=== PATIENT | female | born 1950 | race Caucasian/White ===

== ENCOUNTER 2022-04-08 11:02 | Outpatient (REF) | payer MEDICARE, OTHER, SELFPAY ==
--- NOTE | ~2022-04-08 | MR_ITS ---
EXAMINATION: MR BRAIN WITHOUT CONTRAST CLINICAL INFORMATION: Tremor. Lacunar stroke. Rule out basal ganglia lesion. COMPARISON: Head CT 11/02/2012. TECHNIQUE: Multiplanar, multisequence imaging of the brain was performed without intravenous contrast. FINDINGS: There is no acute infarction, mass, hemorrhage, or extra-axial collection. The ventricles, sulci, and basilar cisterns are normal in size and configuration. There is a small chronic lacunar infarct within the right thalamus. Small chronic lacunar infarcts also seen within the right putamen. Patchy foci of T2/FLAIR hyperintensity are noted in the cerebral white matter, compatible chronic microangiopathy. The flow voids of the major intracranial arteries appear intact. The bones and extracranial soft tissues are unremarkable. MR/MR head/brain wo con IMPRESSION: No acute infarct, hemorrhage, or mass. Small chronic lacunar infarcts seen in the right putamen and right thalamus. Background changes of chronic microangiopathy.
== END 2022-04-08 11:03 | disposition home or self-care (01) ==
LOC: HO.MRI 11:02
PROVIDERS: PCP Internal Medicine; Visit Provider Psychiatry & Neurology Neurology
DX: R25.1 Tremor, unspecified (principal); I63.9 Cerebral infarction, unspecified
CPT/HCPCS: 70551

== ENCOUNTER → 2022-10-15 09:41 | Outpatient (BNVA) | payer MEDICARE, SELFPAY | PROVIDERS: PCP Internal Medicine; Visit Provider Surgery | DX: R91.1 Solitary pulmonary nodule (principal); Z87.891 Personal history of nicotine dependence | CPT/HCPCS: 99202 ==

== ENCOUNTER 2023-01-10 14:59 | Outpatient (REF) | payer MEDICARE, OTHER, SELFPAY ==
--- NOTE | ~2023-01-10 | CT_ITS ---
EXAMINATION: CT CHEST WITHOUT CONTRAST CLINICAL INFORMATION: Solitary pulmonary nodule. COMPARISON: OS chest CT 09/23/2022. TECHNIQUE: Multidetector volumetric CT imaging of the chest was done. Axial MIP volume rendering provided. Sagittal and coronal reformatted images were obtained. This CT examination was performed using dose optimization techniques as appropriate, variously including the following: *Automated exposure control *Adjustment of mA and/or kV according to patient size (this includes techniques or standardized protocols for targeted exams where dose is matched to indication/reason for exam; i.e. extremities or head) *Use of iterative reconstruction technique DLP: 110 mGy-cm FINDINGS: LUNGS: Groundglass nodule posterior right upper lobe measures 1.5 x 0.7 x 0.8 cm compared to 1.4 x 0.9 x 0.9 cm. No new pulmonary nodule. No consolidation. No evidence of interstitial disease. MEDIASTINUM: No adenopathy. Ascending aortic aneurysm measuring 4.2 cm. No pericardial effusion. CORONARY ARTERY CALCIFICATION: Present. Mild LAD calcium. PLEURA: There is no pleural effusion. No pleural mass or thickening. AXILLA: No lymphadenopathy. UPPER ABDOMEN: Simple cyst in the central liver. No follow-up imaging is recommended. OSSEOUS STRUCTURES: No suspicious osseous lesions CT/CT chest wo IV con IMPRESSION: Ascending aortic aneurysm measuring 4.2 cm. Stable 1.5 cm groundglass nodule right upper lobe. Recommend follow-up chest CT in 2 years as per below. 2017 Fleischner Society Recommendations for Lung Nodule(s): Follow-Up based on size (average of long- and short-axis diameters). Use most suspicious nodule for followup. Single GG lung nodule >= 6 mm: Recommend a non-contrast Chest CT at 6-12 months to confirm persistence, then additional non-contrast Chest CTs every 2 years until 5 years. These guidelines do not apply to patients younger than 35 years, immunocompromised patients, and patients with cancer. Follow up in patients with significant comorbidities as clinically warranted. For lung cancer screening, adhere to Lung-RADS guidelines. Reference: Radiology. 2017 José Luis; 284(1):228-243 Fleischner guidelines were followed.
== END 2023-01-10 15:00 | disposition home or self-care (01) ==
LOC: HO.CT 14:59
PROVIDERS: PCP Internal Medicine; Visit Provider Surgery
DX: R91.1 Solitary pulmonary nodule (principal)
CPT/HCPCS: 71250

== ENCOUNTER → 2023-01-28 09:20 | Outpatient (BNVA) | payer MEDICARE, SELFPAY | PROVIDERS: PCP Internal Medicine; Visit Provider Surgery | DX: R91.1 Solitary pulmonary nodule (principal) | CPT/HCPCS: 99212 ==

== ENCOUNTER 2023-07-04 10:19 | Outpatient (REF) | payer MEDICARE, OTHER, SELFPAY ==
--- NOTE | ~2023-07-04 | CT_ITS ---
EXAMINATION: CT CHEST WITHOUT CONTRAST CLINICAL INFORMATION: Solitary pulmonary nodule COMPARISON: 01/10/2023 and 09/23/2022 TECHNIQUE: Multidetector volumetric CT imaging of the chest was done. Axial MIP volume rendering provided. Sagittal and coronal reformatted images were obtained. This CT examination was performed using dose optimization techniques as appropriate, variously including the following: *Automated exposure control *Adjustment of mA and/or kV according to patient size (this includes techniques or standardized protocols for targeted exams where dose is matched to indication/reason for exam; i.e. extremities or head) *Use of iterative reconstruction technique DLP: 191 mGy-cm FINDINGS: PAPERHANGER AND PAINTER: Unremarkable LUNGS: There is stable right upper lobe ill-defined groundglass opacity measured 1.3 x 0.7 x 0.6 cm. The rest of lungs are clear without new nodules or consolidations. MEDIASTINUM: There is prominence of the right thyroid lobe without obvious nodularity. There is no mediastinal or hilar lymphadenopathy seen. Ascending thoracic aorta measured 4.2 x 4.2 cm consistent with ectasia. CORONARY ARTERY CALCIFICATION: Coronary artery calcifications present. PLEURA: There is no pleural effusion. No pleural mass or thickening. AXILLA: No lymphadenopathy. UPPER ABDOMEN: There are 23 low-attenuation lesions in the right lobe of the liver consistent with the appearance of cysts stable since previous study, with the largest in the right lobe measured 2.0 cm.. The cysts are stable. Gallbladder is unremarkable. Visualized pancreas is normal. Stomach is well distended. OSSEOUS STRUCTURES: Unremarkable. CT/CT chest wo IV con IMPRESSION: 1. Stable right upper lobe groundglass opacity. 2. Ectasia of ascending aorta. 3. Stable hepatic cysts. Fleischner guidelines were followed.
== END 2023-07-04 10:20 | disposition home or self-care (01) ==
LOC: HO.CT 10:19
PROVIDERS: PCP Internal Medicine; Visit Provider Surgery
DX: R91.1 Solitary pulmonary nodule (principal)
CPT/HCPCS: 71250

== ENCOUNTER 2024-08-22 12:49 | Outpatient (AMB) | payer MEDICARE, SELFPAY ==
[2024-08-22 12:59] VITALS: BP 120/78; PULSE 93; BMI 26.2
--- NOTE | 2024-08-22 12:59 | MHC.OFFVIS ---
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 Doll/Ascending aorta dilatation Manufacturing Laborer Required: Yes Manufacturing Laborer Name: [id number] Allergies No Known Allergies Allergy (Verified 01/28/23 09:42) Medication List - Last Reconciled 08/22/24 by Paras Lucas MD amlodipine 10 mg PO DAILY atorvastatin 20 mg PO QPM carbidopa-levodopa 25-100 mg 1 tab PO TID hydrochlorothiazide 25 mg PO DAILY levothyroxine (Euthyrox) 75 mcg PO DAILY HPI Comments Details: This is a cardiology consultation regarding ascending aortic dilatation. Patient herself does not have any cardiac history. No history of any coronary disease or myocardial infarction or cardiomyopathy or in fact any other cardiac issues. In the chest CT scan, there is concern for aortic dilatation and hence she has been referred here. In terms of symptoms, she states she feels fine. She does not have any angina or any relevant cardiac symptoms. Has history of hypertension/dyslipidemia on medications. [facility] Medical History (Updated 08/22/24 @ 13:44 by Paras Lucas MD) Ascending aorta dilatation Former smoker, stopped smoking in distant past Hypothyroidism Hypertension History of TIA (transient ischemic attack) Surgical History History of hemorrhoidectomy Family History (Updated 08/22/24 @ 13:10 by Kiara Patricia) Father No problems noted. Mother No problems noted. Social History Patient Tobacco Use Status: Former Tobacco user Cigarette Packs Per Day: 1 Cigarettes Per Day: 20 Years Smoked: Smoked for 29 years onset age 18 at 1 pack per day. Quit 25 years ago. Review of Systems Const Denies weakness ENT Denies dizziness Card Reports chest pain, Denies chest pain with activity, Denies syncope, Denies rapid heart rate, Denies pedal edema, Denies edema, Denies leg edema, Denies lightheadedness, Reports palpitations, Denies dyspnea, Denies dyspnea on exertion and Denies orthopnea Resp Denies cough, Denies dyspnea and Denies dyspnea on exertion GI Denies hematochezia and Denies change in stool character Musc Denies abnormal gait, Denies muscle cramps, Denies muscle weakness, Denies numbness, Denies radiating pain into limb and Denies tingling Neuro Denies abnormal gait, Denies dizziness, Denies syncope, Denies numbness, Denies tingling and Denies weakness Endo Reports palpitations Physical Exam Vital Signs: Last Vital Signs Pulse 93 08/22/24 12:59 BP 120/78 08/22/24 12:59 BMI result Body Mass Index 26.2 Const General: comfortable and no acute distress Orientation/consciousness: patient oriented x3 HEENT Other: Unremarkable Head: Yes normal to inspection Neck Neck: Yes normal visual inspection Chest Chest palpation & inspection: normal inspection of the chest Resp Auscultation: clear to auscultation bilaterally Cardio Palpation: normal PMI Heart sounds: S1 normal heart sound present, S2 normal heart sound present, no gallops, no murmurs and no rubs GI Palpation (GI): Soft to palpation Back/Spine/Pelvis Other: unremarkable Skin General skin exam: no rashes or lesions noted Neuro General: patient oriented x3 Extrem General: Yes normal to inspection Psych Mental Status: mental status grossly normal Assessment & Plan Assessment & Plan (1) Ascending aorta dilatation: Code(s): I77.810 - Thoracic aortic ectasia Category: Medical Plan: In the chest CT scan from 2022, ascending aortic size 4.2 cm. A repeat study from the same year is similar. In the echocardiogram from 2022 at [facility], ascending aortic size reported to be 4.4 cm. As it has been more than a year, we will repeat an echocardiogram for evaluation of size. Any case at the current size of 4.2-4.4 cm, no specific management. Her blood pressure already seems to be very well controlled. Follow-up after the echocardiogram. (2) Hypertension: Code(s): I10 - Essential (primary) hypertension Category: Medical Plan: Stable on amlodipine/hydrochlorothiazide. (3) Hyperlipidemia: Code(s): E78.5 - Hyperlipidemia, unspecified Category: Medical Plan: On statins. LDL 48 mg/dL. Orders: Orders CA echo transthoracic complete Today I77.810 - Thoracic aortic ectasia Coding Level of Care Code New Pt Level 4 (88879) Diagnoses Ascending aorta dilatation I77.810 Hypertension I10 Hyperlipidemia E78.5
--- OUTSIDE RECORDS SUMMARY | 2024-08-22 14:38 | XMS_ITS | Encounter Summary ---
Author Organization [employer] Address [address] [place] [address] [address] [place] [address] Care Team Providers Care Linen Grader Name Role Phone Unavailable Primary Care Provider Unavailabl e Encounter Details Date Type Department Care Team (Latest Contact Info) Description 10/31/2020 Abstract C CONVERSIONS Dental, Provider, DDS Social History Tobacco Use Types Packs/Day Years Used Date Smoking Tobacco: Never Assessed Comments Unknown Sex and Gender Information Value Date Recorded Sex Assigned at Female 05/31/2022 10:16 AM EDT Legal Sex Female 10:16 AM EDT Gender Identity Choose not to disclose 10:16 AM EDT Sexual Orientation Choose not to disclose 2021 10:16 AM EDT documented as of this encounter Plan of Treatment Not on file documented as of this encounter Visit Diagnoses Not on filedocumented in this encounter
--- OUTSIDE RECORDS SUMMARY | 2024-08-22 14:38 | XMS_ITS | Clinical Summary ---
Author Organization [employer] Address [address] [place] [address] [address] [place] [address] Care Team Providers Care Executive Creative Director Name Role Phone Unavailable Primary Care Provider Unavailabl e Social History Tobacco Use Types Packs/Day Years Used Date Smoking Tobacco: Never Assessed Comments Unknown Sex and Gender Information Value Date Recorded Sex Assigned at Female 05/31/2022 10:16 AM EDT Legal Sex Female 10:16 AM EDT Gender Identity Choose not to disclose 10:16 AM EDT Sexual Orientation Choose not to disclose 2021 10:16 AM EDT Plan of Treatment Health Maintenance Due Date Last Done Comments CT Colonography 1952 Colonoscopy 1952 Colorectal Cancer Screening 1952 Depression Screening 1952 FIT DNA/Cologuard 1952 FIT 1952 FOBT 1952 Sigmoidoscopy 1952 Alcohol/Substance Use Screening 1964 Tobacco Screening 1964 DTaP/Tdap/Td Vaccines (1 - Tdap) 1971 Mammogram 1992 Zoster Vaccines (1 of 2) 2002 Pneumococcal Vaccine: 65+ Ye ars (1 of 1 - PCV) 2017 COVID-19 Vaccine ( - 2023-2 5 season) 2024 Influenza Vaccine (#1) 2024 RSV Patients and Pa tients Aged 60 years or older (1 - 1-dose 75+ series) 2027 HIB Vaccines Aged Out No longer eligi ble based on patient's age to complete this topic HPV Vaccines Aged Out No longer eligi ble based on patient's age to complete this topic Hepatitis A Vaccines Aged Out No long er eligible based on patient's age to complete this topic Hepatitis B Vaccines Aged Out No long er eligible based on patient's age to complete this topic IPV Vaccines Aged Out No longer eligi ble based on patient's age to complete this topic Meningococcal Vaccine Aged Out No carlos ayana eligible based on patient's age to complete this topic RSV under 20 months Aged Out No longe r eligible based on patient's age to complete this topic Rotavirus Vaccines Aged Out No longer eligible based on patient's age to complete this topic
--- OUTSIDE RECORDS SUMMARY | 2024-08-22 14:38 | XMS_ITS | Clinical Summary ---
Author Organization [facility] Address [address] [place] [address] Care Team Providers Care Snow Removal Supervisor Name Role Phone Unavailable Primary Care Provider Unavailabl e Source Comments PLEASE NOTE, if this patient is a minor, it may be UNLAWFUL to discuss sensitive information that is contained in these records (such as FAMILY PLANNING, MENTAL HEALTH or SUBSTANCE ABUSE) with the minor patient's parent or other person without the patient's specific authorization.[facility] Immunizations Name Administration Dates Next Due Moderna COVID-19 Vaccine, re d cap blue label, 12+ Primary Series 11/24/2020,10/27/2020 Social History Tobacco Use Types Packs/Day Years Used Date Smoking Tobacco: Never Assessed Social Connections Answer Date Recorded Social Connections and Isolation 0 10/27/2020 Financial Resource Strain Answer Date R ecorded Financial Resource Strain 0 2020 Stress Answer Date Recorded Stress 0 10/27/2020 Physical Activity Answer Date Recorded Physical Activity 0 10/27/2020 Food Insecurity Answer Date Recorded Food 0 10/27/2020 Transportation Needs Answer Date Record ed Transportation 0 10/27/2020 Housing Stability Answer Date Recorded Housing 0 10/27/2020 Safety and Environment Answer Date Shan rded Safety 0 10/27/2020 Utilities Answer Date Recorded Utilities 0 10/27/2020 Employment Answer Date Recorded Employment 0 10/27/2020 Comments Unknown Sex and Gender Information Value Date Recorded Sex Assigned at Not on file Legal Sex Female 5:32 AM PDT Gender Identity Not on file Sexual Orientation Not on file Plan of Treatment Health Maintenance Due Date Last Done Comments Hepatitis C Screening 1952 Tobacco Screening 1952 Hypertension Screening (#1) 1970 Medicare Annual Wellness Visit 1970 Breast Cancer Screening (Mammogram) 1992 CT Colonography 1997 Colonoscopy 1997 Colorectal Cancer Screening 1997 FIT/gFOBT 1997 Fecal DNA 1997 Flexible Sigmoidoscopy 1997 Imm-Zoster, Recombinant (1 of 2) 2002 Bone Density Screening 2017 Falls Prevention 2017 Imm-Pneumococcal 65+ (2 of 2 - PPSV23 or PCV20) 03/29/2019 03/29/2018 Imm-DTaP/Tdap/Td (2 - Td or Tdap) 06/09/2022 012 [id number] (3 - season) 2024 021, 10/27/2020 Imm-Influenza (#1) 2024 05/23/2020, 07/18/2019 Alcohol and Drug Screen 08/01/2024 Depression Annual Screen 08/01/2024 Lipid Screening 09/25/2025 09/25/2020 Insurance [employer] MEDICARE COMPLETE CHO
--- OUTSIDE RECORDS SUMMARY | 2024-08-22 14:38 | XMS_ITS | Clinical Summary ---
Author Organization Patient Business Ser [facility] Address [address] [place] [address] Care Team Providers Care Guidance And Control System Engineer Name Role Phone Tere Tim MD Primary Care Prov ider Allergies No known active allergies Medications Medication Sig Dispensed Refills Start Date End Date Status levothyroxine (SYNTHROID, LEVOTHROID) 75 mcg tablet Take 1 tablet (75 mcg total) by mouth 1 (one) time each day. 02/23/2024 Active hydroCHLOROthiazide (MICROZIDE) 12.5 mg capsule Take 1 capsule (12.5 mg total) by mouth 1 (one) time each day. 05/28/2024 Active carbidopa-levodopa (SINEMET) 25-100 mg per tablet Take 1 tablet by mouth. 09/19/2022 Active atorvastatin (LIPITOR) 20 mg tablet Take 1 tablet (20 mg total) by mouth 1 (one) time each day. 02/23/2024 Active amLODIPine (NORVASC) 5 mg tablet Take 1 tablet (5 mg total) by mouth 1 (one) time each day. 02/23/2024 Active multivitamin with minerals (CENTRUM/CERTAVIT) 18-400 mg-mcg tablet tablet Take by mouth 1 (one) time each day. Active calcium carbonate (CALCIUM ORAL) Take by mouth. Active Active Problems Problem Noted Date Diagnosed Date Rectocele 09/01/2023 Overview (06/16/2024): Last Assessment & Plan: Reviewed options for management of pelvic organ prolapse including observation, as long as not having difficulty emptying or significant discomfort, pessary fitting, vs surgical intervention. Given she is minimally symptomatic and has no difficulty emptying bladder, she desires to observe for now, but will call if she desires pessary fitting in the future. I did recommend she work on her constipation to avoid worsening. Ground glass opacity present on imaging of lung 07/15/2023 Overview (06/16/2024): Last Assessment & Plan: 73-year-old woman who I had followed for a little while at [facility] with a stable purely groundglass nodule measuring 1.3 x 0.7 x 0.6 cm in the right upper lobe along the fissure. Based on its size and appearance is quite possibly could be a lipidic type lung cancer or precancerous lesion. I did discuss with her and her daughter again how we use the size, shape/appearance, and growth over time to either raise or lower suspicion for a lung cancer. This is stable and still purely groundglass but I discussed options with her of continued observation versus needle biopsy versus surgical wedge resection. The risks and benefits reviewed these options were discussed and she decided to go with observation. With that in mind we will now plan on doing a follow-up CT scan of the chest in 1 year and a visit with me in this office after that. All questions were answered. She will have her CAT scans moving forward here at [facility]. Osteoporosis 10/18/2022 Overview (06/16/2024): DXA BONE DENSITY STUDY 1+ SITS AXIAL SKEL Result Date: 10/18/2022 BONE DENSITY (DEXA) Lumbar Spine T-score is -2.3. (SD relative to 20-29 y/o adult) Z-score is -0.2. (SD relative to age matched peers) This is considered osteopenia by WHO criteria. Left Hip T-score is -3.3. Z-score is -1.5. This is considered osteoporosis by WHO criteria. Lateral view of the spine demonstrates vertebral heights to be maintained. IMPRESSION This patient is considered to have osteoporosis by WHO criteria. The [facility] Department of Internal Medicine recommends using National Osteoporosis Foundation (NOF) guidelines in treatment decisions related to osteoporosis. NOF guidelines suggest considering treatment for postmenopausal women and men aged 50 or older presenting with the following: History of hip or vertebral fracture. T-score = -2.5 (DXA) at the femoral neck, total hip, or spine, after appropriate evaluation to exclude secondary causes. Low bone mass (T-score between -1.0 and -2.5 at the femoral neck or spine) AND a 10-year probability of a hip fracture = 3% OR a 10-year probability of a major osteoporosis-related fracture = 20% based on the [place]-adapted WHO algorithm Please note that all treatment decisions require clinical judgment and consideration of individual patient factors, including patient preferences, co-morbidities, previous drug use, risk factors not captured in the FRAX model (e.g., frailty, falls, vitamin D deficiency, increased bone turnover, interval significant decline in bone density) and possible under- or over- estimation of fracture risk by FRAX. Optional alternative screening schedule based on laurie Weems., [facility] August 19, 2011 for patients with osteopenia (based on hip BMD T- score) is as follows: * advanced osteopenia (T scores -2.00 to -2.49), BMD testing every year * moderate osteopenia (T scores -1.50 to -1.99), BMD testing every 5 years mild osteopenia or normal BMD (T scores -1.50 and higher), BMD testing every 15 years Parkinson's disease 06/07/2022 Overview (06/16/2024): Dr Lawson Hyperlipidemia 07/01/2021 Overview (06/16/2024): Last Assessment & Plan: Patient did have a lipid profile performed 3 weeks ago. The total cholesterol was 254 Triglycerides 196 the HDL was 56 and the LDL was 159. She was noted to have some mild coronary artery calcifications on the CT scan. I would consider starting her on a statin such as rosuvastatin to try to get the LDL down to 70 or below. Ascending aorta dilatation 04/02/2015 Overview (06/16/2024): CT 02/28/15: measuring 4.3 cm AP Last Assessment & Plan: I did review with her that the last echocardiogram demonstrated that her heart function was normal. Ascending aorta was dilated at 4.4 cm.The transverse aorta was dilated at 3.4 cm. The etiology is not clear. There is no family history of dilated aorta. There has been no history of collagen vascular disease. I did again tell her her children should get a screening echocardiogram. She did have a CT of the chest back in September and she is seeing a thoracic surgeon because of the finding there. The ascending aorta at that time was noted to be 4.2 cm. I does have a repeat echocardiogram scheduled for December. Today the blood pressure is good. She was recently started on carbidopa-levadopa for her Parkinson's. Therefore somewhat reluctant to start a beta-yessy at this time. I did tell her if she started having exertional symptoms, that I described to her to call. I did tell her if she had any chest discomforts or upper back discomfort that lasted over 15 minutes to call 911. Depression, major, recurrent 01/16/2014 Weakness 07/06/2012 Lacunar infarction 07/03/2012 Overview (06/16/2024): Right basal ganglia- old seen on CT at [facility] 06/2012 Asthma 02/11/2012 HTN (hypertension), benign 09/08/2011 Overview (06/16/2024): Carotid cuplex b/l: less than 50% ica stenosis Hypothyroid 09/08/2011 Immunizations Name Administration Dates Next Due Influenza trivalent, 0.5mL (Fluad) 65yo and olde r 05/23/2020,07/18/2019 Pneumococcal conjugate 13 va lent (Prevnar 13, PCV13) 2mo and older 03/29/2018 Td Tetanus diptheria (Tdvax) 7yo and older 10/04 Tdap Tetanus diptheria acell ular pertussis (Boostrix; Adacel) 7yo and older 06/09/2012 Surgical History Surgery Date Site/Laterality Comments TUBAL LIGATION PROCEDURE: HISTORICAL TUBAL LIGATION HEMORRHOID SURGERY PROCEDURE: DESTRUCTION OF HEMORRHOIDS SECTION PROCEDURE: HISTORICAL DELIVERY BREAST BIOPSY PROCEDURE: BX BREAST; PERC NEEDLE CORE W/IMAG GUID; COMMENT: lt brst cyst asp Medical History Medical History Date Comments Disorder of thyroid DX:Disorder of thyroid Essential hypertension DX:Essent ial hypertension TIA (transient ischemic attack) DX:TIA (transient ischemic attack) Parkinson's disease (CMS/HCC) 06/07/2022 DX :Parkinson's disease (HCC); COMMENT: Dr Lawson Family History Medical History Relation Name Comments No Known Problems Aunt No Known Problems Brother No Known Problems Father No Known Problems Maternal Grandfather No Known Problems Maternal Grandmother No Known Problems Mother No Known Problems Other No Known Problems Paternal Grandfather No Known Problems Paternal Grandmother No Known Problems Sister No Known Problems Uncle Blindness Neg Hx Breast cancer Neg Hx Cataracts Neg Hx Colon cancer Neg Hx Glaucoma Neg Hx Macular degeneration Neg Hx Ovarian cancer Neg Hx Strabismus Neg Hx Stroke Neg Hx Relation Name Status Comments Aunt Brother Father Maternal Grandfather Maternal Grandmother Mother Other Paternal Grandfather Paternal Grandmother Sister Uncle Social History Tobacco Use Types Packs/Day Years Used Date Smoking Tobacco: Former Smokeless Tobacco: Former Alcohol Use Standard Drinks/Week Comments Yes 0 (1 standard drink = 0.6 oz pur e alcohol) Sex and Gender Information Value Date Recorded Sex Assigned at Not on file Gender Identity Not on file Sexual Orientation Not on file Obstetrics History Last Filed Vital Signs Vital Sign Reading Time Taken Comments Blood Pressure 120/70 02/23/2024 10:47 AM EDT Pulse 73 02/23/2024 10:47 AM EDT Temperature - - Respiratory Rate - - Oxygen Saturation - - Inhaled Oxygen Concentration - - Weight 66.3 kg (146 lb 3.2 oz) 02/23/2024 10:47 AM EDT Height 154.9 cm (5' 1 ) 02/23/2024 10:47 AM EDT Body Mass Index 27.62 02/23/2024 10:47 AM EDT Plan of Treatment Upcoming Encounters Date Type Department Care Team (Late st Contact Info) Description 08/27/2024 8:45 AM EST Office Visit Adult Medicine [address] [address] Tere Tim MD [address] [place] [id number] 08/31/2024 5:15 PM EST Appointment [facility] Scan [address] [place] [id number] 09/06/2024 10:30 AM EST Office Visit Thoracic Surgery - [place] [address] [facility] [address] [place] [address] Renny Dietrich MD [address] [place] [phone] 09/17/2024 9:50 AM EST Appointment Radiology Department - [address] [phone] Health Maintenance Due Date Last Done Comments Zoster Vaccines (1 of 2) 2002 RSV Immunization Patients 60+ Years Old (1 - Risk 60-74 years 1-dose series) 2012 Medicare Annual Wellness Visit 02/02/2020 Social Influencers of Health Screening 02/02/2020 COVID-19 Vaccine ( season) 2024 11/24/2020, 10/27/2020 Influenza Vaccine (#1) 2024 05/23/2020, 2018 Colorectal Cancer Screening: Colonoscopy 02/22/2025 09/08/2010 Postponed from 09/08/2020 (Patient Refused) Depression Screening 02/22/2025 02/23/2024 Falls Risk Assessment 02/22/2025 02/23/2024 Pneumococcal Vaccine: 65+ Years (2 of 2 - PPSV23 or PCV20) 02/22/2025 03/29/2018 Postponed from 05/24/2018 (Patient Refused) Hypertension/CHF/CAD Annual BMP Blood Test 02/26/2025 02/27/2024 Breast Cancer Screening 09/06/2025 09/06/19, 07/22/2022, 07/15/2021, Additional history exists Cholesterol Screening (Lipid Panel) 02/26/2029 02/27/2024 DTaP,Tdap,and Td Vaccines (3 - Td or Tdap) 10/04/2032 10/04/2022, 06/09/2012 Osteoporosis Screening (Bone Density Screening) 10/18/2032 10/18/2022, 06/25/2019 Hepatitis C Screening Addressed 11/08/2017 Overri dden with the intention of not completing the topic HIB Vaccines Aged Out No longer eligi [...] on patient's age to complete this topic MMR Vaccines Aged Out No longer eligi ble based on patient's age to complete this topic Meningococcal ACWY Vaccine Aged Out N o longer eligible based on patient's age to complete this topic RSV Immunization Patients Under 20 months Aged Out No longer eligible based on patient's age to complete this topic Varicella Vaccines Aged Out No longer eligible based on patient's age to complete this topic Procedures Procedure Name Priority Date/Time Associated Diagnosis Comments SCREENING MAMMOGRAPHY BI 2-VIEW BREAST INC CAD Routine 09/06/2023 6:26 PM EST Encounter for screening mammogram for malignant neoplasm of breast DXA BONE DENSITY STUDY 1+ SITS AXIAL SKEL Routine 10/18/2022 10:12 AM EDT Asymptomatic menopausal state from Last 3 Months or Most Recently Relevant to Health Maintenance Results * SCREENING MAMMOGRAPHY BI 2-VIEW BREAST INC CAD (09/06/2023 6:26 PM EST) Anatomical Region Laterality Modality Radiographic Cheri ging 07/22/2022 9:13 AM EST Narrative 09/07/2023 11:56 AM EST This is a summary report. The complete report is available in the patient's medical record. If you cannot access the medical record, please contact the sending organization for a detailed fax or copy. Full field digital screening tomosynthesis mammography, reviewed with CAD and compared to previous mammograms dating back to 06/25/2019 with most recent of 07/22/2022. The breasts are composed of fatty and fibroglandular tissue. ??No suspicious mass, architectural distortion or suspicious calcifications are identified. IMPRESSION: : No mammographic evidence of malignancy. BIRADS 1-Negative; N. 5 year breast cancer risk assessment 1.7 % Lifetime breast cancer risk assessment 4.7 % Breast cancer risk category Low (<15%) Procedure Note Aga Bourne MD - 03/19/2024 This is a summary report. The complete report is available in thepatient's medical record. If you cannot access the medical record, pleasecontact the sending organization for a detailed fax or copy. Full field digital screening tomosynthesis mammography, reviewed with CADand compared to previous mammograms dating back to 06/25/2019 with mostrecent of 07/22/2022. The breasts are composed of fatty and fibroglandulartissue. No suspicious mass, architectural distortion or suspiciouscalcifications are identified. IMPRESSION: : No mammographic evidence of malignancy. BIRADS 1-Negative; N. 5 year breast cancer risk assessment 1.7 % Lifetime breast cancer risk assessment 4.7 % Breast cancer risk category Low (<15%) Tere Tim MD IMG XR PRO CEDURES * DXA BONE DENSITY STUDY 1+ SITS AXIAL SKEL (10/18/2022 10:12 AM EDT) Anatomical Region Laterality Modality Bone Densitometr y 10/04/2022 9:31 AM EST Narrative 10/18/2022 1:06 PM EDT BONE DENSITY (DEXA) ? Lumbar Spine T-score is -2.3. ?? (SD relative to 20-29 y/o adult) Z-score is -0.2. ??(SD relative to age matched peers) This is considered osteopenia by WHO criteria. Left Hip T-score is -3.3. Z-score is -1.5. This is considered osteoporosis by WHO criteria. Lateral view of the spine demonstrates vertebral heights to be maintained. IMPRESSION: This patient is considered to have osteoporosis by WHO criteria. The [facility] Department of Internal Medicine recommends using National Osteoporosis Foundation (NOF) guidelines in treatment decisions related to osteoporosis. NOF guidelines suggest considering treatment for postmenopausal women and men aged 50 or older presenting with the following: History of hip or vertebral fracture. T-score = -2.5 (DXA) at the femoral neck, total hip, or spine, after appropriate evaluation to exclude secondary causes. Low bone mass (T-score between -1.0 and -2.5 at the femoral neck or spine) AND a 10-year probability of a hip fracture = 3% OR a 10-year probability of a major osteoporosis-related fracture = 20% based on the [place]-adapted WHO algorithm Please note that all treatment decisions require clinical judgment and consideration of individual patient factors, including patient preferences, co-morbidities, previous drug use, risk factors not captured in the FRAX model (e.g., frailty, falls, vitamin D deficiency, increased bone turnover, interval significant decline in bone density) and possible under- or over-estimation of fracture risk by FRAX. Optional alternative screening schedule based on christopher Weems al., [facility] August 19, 2011 for patients with osteopenia (based on hip BMD T-score) is as follows: * ??advanced osteopenia (T scores -2.00 to -2.49), BMD testing every year * ??moderate osteopenia (T scores -1.50 to -1.99), BMD testing every 5 years mild osteopenia or normal BMD (T scores -1.50 and higher), BMD testing every 15 years Procedure Note Aga Bourne MD - 09/05/2023 BONE DENSITY (DEXA) Lumbar Spine T-score is -2.3. (SD relative to 20-29 y/o adult) Z-score is -0.2. (SD relative to age matched peers) This is considered osteopenia by WHO criteria. Left Hip T-score is -3.3. Z-score is -1.5. This is considered osteoporosis by WHO criteria. Lateral view of the spine demonstrates vertebral heights to be maintained. IMPRESSION: This patient is considered to have osteoporosis by WHO criteria. The [facility] Department of Internal Medicine recommendsusing National Osteoporosis Foundation (NOF) guidelines in treatment decisions related toosteoporosis. NOF guidelines suggest considering treatment for postmenopausal women and menaged 50 or older presenting with the following: History of hip or vertebral fracture. T-score = -2.5 (DXA) at the femoral neck, total hip, or spine, afterappropriate evaluation to exclude secondary causes. Low bone mass (T-score between -1.0 and -2.5 at the femoral neck or spine)AND a 10-year probability of a hip fracture = 3% OR a 10-year probability of a majorosteoporosis-related fracture = 20% based on the [place]-adapted WHO algorithm Please note that all treatment decisions require clinical judgment andconsideration of individual patient factors, including patient preferences, co- morbidities,previous drug use, risk factors not captured in the FRAX model (e.g., frailty, falls, vitaminD deficiency, increased bone turnover, interval significant decline in bone density) andpossible under- or over-estimation of fracture risk by FRAX. Optional alternative screening schedule based on laurie Weems., NEJMJanuary 2011 for patients with osteopenia (based on hip BMD T-score) is as follows: * advanced osteopenia (T scores -2.00 to -2.49), BMD testing every year * moderate osteopenia (T scores -1.50 to -1.99), BMD testing every 5years mild osteopenia or normal BMD (T scores -1.50 and higher), BMD testingevery 15 years Laura CORBIN DXA PROCEDURES from Last 3 Months or Most Recently Relevant to Health Maintenance Care Teams Guidance And Control System Engineer Relationship Specialty Start Date End Date Tere Tim MD PCP - General Internal Medicine 03/02/22
== END 2024-08-22 13:21 | disposition home or self-care (01) ==
PROVIDERS: PCP Internal Medicine; Visit Provider Internal Medicine
DX: I77.810 Thoracic aortic ectasia (principal); I10 Essential (primary) hypertension; E78.5 Hyperlipidemia, unspecified
CPT/HCPCS: 93010; 99204

== ENCOUNTER → 2024-08-22 12:49 | Outpatient (BNVA) | payer MEDICARE, OTHER, SELFPAY | PROVIDERS: PCP Internal Medicine; Visit Provider Internal Medicine | DX: I77.810 Thoracic aortic ectasia (principal); I10 Essential (primary) hypertension; E78.5 Hyperlipidemia, unspecified | CPT/HCPCS: 93005; 99202 ==

== ENCOUNTER → 2024-08-31 09:45 | Outpatient (REF) | payer MEDICARE, OTHER, SELFPAY ==
--- NOTE | 2024-08-31 09:47 | CA_ITS ---
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 The calculated ejection fraction is 67% by biplane method. - No obvious valvular pathology seen on this study. - There is mild dilatation of the ascending aorta measuring 4.10 cm. Findings Left Ventricle Normal left ventricular cavity size. There is normal left ventricular wall thickness. The left ventricular systolic function is normal. The calculated ejection fraction is 67% by biplane method. There is no evidence of regional wall motion abnormalities. Diastolic function is normal for age. Right Ventricle Normal right ventricular cavity size and systolic function. Atria Both atria are normal in size. Aortic Valve The aortic valve was not well visualized. There is no aortic valve stenosis. There is no aortic valve regurgitation. Mitral Valve The mitral valve appears normal. There is no mitral valve regurgitation. There is no mitral valve stenosis. Pulmonic Valve The pulmonic valve is likely normal. Tricuspid Valve There is trace tricuspid valve regurgitation. There is no evidence of pulmonary hypertension. Great Vessels There is mild dilatation of the ascending aorta measuring 4.10 cm. Venous The inferior vena cava is normal in size and collapses greater than 50% with inspiration. Pericardium/Pleural There is no evidence of pericardial effusion. Prior Study Comparison Changes noted compared to prior study dated: 06/27/2012. Recommendations, Care & Conclusions No obvious valvular pathology seen on this study. Measurements 2D Linear Measurements IVSd: 0.99 0.6-0.9/0.6-1.0 cm LVIDd: 4.58 3.9-5.3/4.2-5.9 cm LVIDd Index: 2.78 2.4-3.2/2.2-3.1 cm/m2 LVIDs: 3.06 2.0-3.6 cm LVPWd: 0.60 0.7-1.1 cm Ao Root: 3.20 2.1-3.5 cm LA Diam: 3.90 2.7-3.8/3.0-4.0 cm LAIDs Index: 2.36 1.5-2.3 cm/m2 LV Mass: 144.25 67-162/88-224 g LV Mass Index: 87.42 43-95/49-115 g/m2 LVOT Diam: 2.10 3.0+(-)1.3 cm 2D Systolic Function EF 4C: 61.70 >55% EF 2C: 72.20 >55% EF BiP: 67.10 >55% Mitral Valve MV Pk E: 0.50 MV PK A: 0.92 MV Decel Time: 155.00 E/A: 0.50 E'Lateral: 6.31 E'Medial: 5.55 E/E' Med: 9.00 E/E' Lat: 8.00 PHT: 46.00 MVA PHT: 4.78 Decel Bucks: 3.23 Aortic Valve AoV Pk Todd: 1.45 AoV Pk Grad: 8.00 LVOT LVOT Pk Todd: 1.33 LVOT Mn Todd: 0.80 LVOT VTI: 0.32 LVOT Pk Grad: 7.00 LVOT Mn Grad: 3.00 LVOT Diam: 2.10 LVOT Area: 3.46 Diastolic Function MV Pk E: 0.50 MV Pk A: 0.92 E/A: 0.50 E'Medial: 5.55 E/E' Med: 9.00 E' Laterial: 6.31 E/E' Lat: 8.00 Right Ventricle TAPSE (mm): 18.00 TVS' Todd: 10.00 Tricuspid Valve TR Pk Todd: 1.56 TR Pk Grad: 10.00 RA Press: 3.00 RVSP: 13.00 Great Vessels Aorta Ao Root-2D: 3.20 2.0-3.7 cm Ao Asc: 4.10 2.1-3.4 cm Pulmonary Valve PV Pk Todd: 0.89 Peak PV Grad: 3.00 Updated in Other Vendor System with Status of Final Paras Lucas MD electronically signed on 09/01/2024 1:03:04 PM with status of Final
--- OUTSIDE RECORDS SUMMARY | 2024-08-31 10:20 | XMS_ITS | Clinical Summary ---
Author Organization [employer] Address [address] [place] [address] [address] [place] [address] Care Team Providers Care Presentation Designer Name Role Phone Unavailable Primary Care Provider [...] Vaccines (1 - Tdap) 1971 Mammogram 1992 Pneumococcal Vaccine: 50+ Ye ars (1 of 1 - PCV) 2002 Zoster Vaccines (1 of 2) 2002 COVID-19 Vaccine ( - 2023-2 5 season) [...]
--- OUTSIDE RECORDS SUMMARY | 2024-08-31 10:20 | XMS_ITS | Clinical Summary ---
Author Organization [facility] Address [address] [place] [address] Care Team Providers Care Fire Crew Worker Name Role Phone Unavailable Primary Care Provider [...] 2017 Imm-Pneumococcal 65+ (2 of 2 - PPSV23) 03/29/2019 Imm-DTaP/Tdap/Td (2 - Td or Tdap) 06/09/2022 012 [id number] (3 - season) 2024 021, 10/27/2020 Imm-Influenza (#1) 2024 05/23/2020, 07/18/2019 Alcohol and Drug Screen 08/01/2024 Depression Annual Screen 08/01/2024 Lipid Screening 09/25/2025 09/25/2020 Insurance [employer] MEDICARE COMPLETE CHO
--- OUTSIDE RECORDS SUMMARY | 2024-08-31 10:20 | XMS_ITS | Encounter Summary ---
Author Organization [employer] Address [address] [place] [address] Care Team Providers Care Button Attaching Machine Operator Name Role Phone Tere Tim MD Primary Care Prov ider Reason for Referral * Consultation (Routine) - Pending Review Specialty Diagnoses / Procedures Referred By Contac t Referred To Contact Physical Therapy Diagnoses Left shoulder pain, unspecified chronicity Tere Tim MD [address] [place] [id number] Referral ID Status Reason Start Date Expiration Date Visits Requested Visits Authorized [id number] Pending Review Specialty Services Required 08/27/2024 08/27/2025 1 1 Reason for Visit * Reason Comments Follow-up 6 month follow up Encounter Details Date Type Department Care Team (Late st Contact Info) Description 08/27/2024 8:45 AM EST Office Visit Adult Medicine [address] [phone] Tere Tim MD [address] [place] [id number] HTN (hypertension), benign (Primary Dx); Mixed hyperlipidemia; Hypothyroidism, unspecified type; Parkinson's disease without dyskinesia, unspecified whether manifestations fluctuate (CMS/HCC); Ascending aorta dilatation (CMS/HCC); Left shoulder pain, unspecified chronicity Social History Tobacco Use Types Packs/Day Years Used Date Smoking Tobacco: Former Smokeless Tobacco: Former Alcohol Use Standard Drinks/Week Comments Yes 0 (1 standard drink = 0.6 oz pur e alcohol) Sex and Gender Information Value Date Recorded Sex Assigned at Not on file Gender Identity Not on file Sexual Orientation Not on file Job Start Date Occupation Industry Not on file Not on file Not on file documented as of this encounter Last Filed Vital Signs Vital Sign Reading Time Taken Comments Blood Pressure 126/85 08/27/2024 8:33 AM EST Pulse 80 08/27/2024 8:33 AM EST Temperature 36.1 ??C (97 ??F) 08/27/2024 8:33 AM EST Respiratory Rate 16 08/27/2024 8:33 AM EST Oxygen Saturation - - Inhaled Oxygen Concentration - - Weight 66.2 kg (146 lb) 08/27/2024 8:33 AM EST Height 154.9 cm (5' 1 ) 08/27/2024 8:33 AM EST Body Mass Index 27.59 08/27/2024 8:33 AM EST documented in this encounter Progress Notes * Tere Tim MD - 08/27/2024 8:45 AM ESTAssociated Problem(s): HTN (hypertension), benign Today 126/85. Currently on amlodipine 5 mg a day, hydrochlorothiazide 25 mg. Patient is encouraged to follow a low-salt diet and exercise as much as he can. Continue same regimen, will check a CMP before her next visit. Orders: Comprehensive metabolic panel; Future Lipid panel with reflex to direct LDL; Future Thyroid stimulating hormone with reflex to free t4 and free t3; Future * Tere Tim MD - 08/27/2024 8:45 AM ESTAssociated Problem(s): Hyperlipidemia Currently on atorvastatin 20 mg a day. She is encouraged to follow a low-fat diet and exercise as above. Will check a lipid profile before her next visit. Orders: Comprehensive metabolic panel; Future Lipid panel with reflex to direct LDL; Future Thyroid stimulating hormone with reflex to free t4 and free t3; Future * Tere Tim MD - 08/27/2024 8:45 AM ESTAssociated Problem(s): Hypothyroid Currently on levothyroxine 75 mcg a day. Last TSH within normal limits. We will continue same dose for now. New TSH before next appointment. * Tere Tim MD - 08/27/2024 8:45 AM ESTAssociated Problem(s): Parkinson's disease (CMS/HCC) currently on levodopa carbidopa carbidopa/levodopa. Follows regularly with neurology. Encouraged tocontinue taking this medication. * Tere Tim MD - 08/27/2024 8:45 AM ESTAssociated Problem(s): Ascending aorta dilatation (CMS/HCC) She follows regularly with cardiology. Stable findings. * Tere Tim MD - 08/27/2024 8:45 AM EST Images from the original note were not included. Chief Complaint Fabiana Sandoval is a 74 y.o. female presenting for Follow-up (6 month follow up) Subjective Patient with a pmh of HTN, hypothyroidism, parkinson's disease, comes for med review. Feels well, compliant with medications, does not follow any special diet, exercises regularly. Patient follows regularly with neurology, will see them next week. States she is not taking Amlodipine for the last month because of dizziness. Complains of bad smell on left armpit, no skin lesions of masses. The following portions of the patient's history were reviewed by a provider in this encounter and updated as appropriate: Allergies: She has No Known Allergies. Medications: Current Outpatient Medications Medication Instructions amLODIPine (NORVASC) 5 mg tablet 1 tablet, oral, Daily atorvastatin (LIPITOR) 20 mg tablet 1 tablet, oral, Daily calcium carbonate (CALCIUM ORAL) oral carbidopa-levodopa (SINEMET) 25-100 mg per tablet 1 tablet, oral hydroCHLOROthiazide (MICROZIDE) 12.5 mg capsule 1 capsule, oral, Daily levothyroxine (SYNTHROID, LEVOTHROID) 75 mcg tablet 1 tablet, oral, Daily multivitamin with minerals (CENTRUM/CERTAVIT) 18-400 mg-mcg tablet tablet oral, Daily Review of Systems: Review of Systems Constitutional: Negative. Respiratory: Negative. Cardiovascular: Negative. Gastrointestinal: Negative. All other systems reviewed and are negative. Objective BP 126/85 Pulse 80 Temp 36.1 ??C (97 ??F) (Temporal) Resp 16 Ht 1.549 m (61 ) Wt 66.2 kg (146 lb) BMI 27.59 kg/m?? Physical Exam Vitals reviewed. Constitutional: Appearance: Normal appearance. Cardiovascular: Rate and Rhythm: Normal rate and regular rhythm. Heart sounds: Normal heart sounds. Pulmonary: Effort: Pulmonary effort is normal. Breath sounds: Normal breath sounds. Musculoskeletal: General: No swelling. Normal range of motion. Cervical back: Neck supple. Skin: General: Skin is warm. Neurological: General: No focal deficit present. Mental Status: She is alert. Assessment/Plan Assessment & Plan HTN (hypertension), benign Today 126/85. Currently on amlodipine 5 mg a day, hydrochlorothiazide 25 mg. Patient is encouraged to follow a low-salt diet and exercise as much as he can. Continue same regimen, will check a CMP before her next visit. Orders: Comprehensive metabolic panel; Future Lipid panel with reflex to direct LDL; Future Thyroid stimulating hormone with reflex to free t4 and free t3; Future Mixed hyperlipidemia Currently on atorvastatin 20 mg a day. She is encouraged to follow a low-fat diet and exercise as above. Will check a lipid profile before her next visit. Orders: Comprehensive metabolic panel; Future Lipid panel with reflex to direct LDL; Future Thyroid stimulating hormone with reflex to free t4 and free t3; Future Hypothyroidism, unspecified type Currently on levothyroxine 75 mcg a day. Last TSH within normal limits. We will continue same dose for now. New TSH before next appointment. Parkinson's disease without dyskinesia, unspecified whether manifestations fluctuate (CMS/HCC) currently on levodopa carbidopa carbidopa/levodopa. Follows regularly with neurology. Encouraged tocontinue taking this medication. Ascending aorta dilatation (CMS/HCC) She follows regularly with cardiology. Stable findings. Left shoulder pain, unspecified chronicity Persistent left shoulder pain. Patient agrees to do physical therapy. A referral was placed today. Orders: Ambulatory referral to Physical Therapy and Athletic Training; Future All questions and concerns were addressed. Patient verbalizes understanding and agrees with above treatment plan. Patient was advised to contact the office with any worsening symptoms or if new or existing problems arise. Patient to follow- up in 3 months. I have applied the code G2211 to this patient???s visit as the primary care provider dealing with (hypertension, hyperlipidemia, hypothyroidism) leading to the extensive work up, and management associated with the medical care of this patient. This patient???s serious conditions and complex medicalconditions also required several consultants needing management and coordination through my office.I have reviewed all information as it pertains to the management of this patient for final approval. Tere Doll MD ADULT MEDICINE [address] Dept: [phone] Dept Date of Visit: 08/27/2024 documented in this encounter Plan of Treatment Upcoming Encounters Date Type Department Care Team (Late st Contact Info) Description 09/17/2024 9:50 AM EST Appointment Radiology Department [address] [phone] 11/27/2024 9:00 AM EDT Office Visit Adult Medicine [address] [phone] Tere Tim MD [address] [place] [id number] Scheduled Orders Name Type Priority Associated Diagnoses Orde r Schedule Comprehensive metabolic panel Lab Routine HTN (hypertension), benign Mixed hyperlipidemia 1 Occurrences starting 08/27/2024 until 08/27/2025 Lipid panel with reflex to direct LDL Lab Routine HTN (hypertension), benign Mixed hyperlipidemia 1 Occurrences starting 08/27/2024 until 08/27/2025 Thyroid stimulating hormone with reflex to free t4 and free t3 Lab Routine HTN (hypertension), benign Mixed hyperlipidemia 1 Occurrences starting 08/27/2024 until 08/27/2025 Scheduled Referrals Name Type Priority Associated Diagnoses Order Schedule Ambulatory referral to Physical Therapy and Athletic Training Outpatient Referral Routine Left shoulder pain, unspecified chronicity 1 Occurrences starting 08/27/2024 until 08/27/2025 documented as of this encounter Visit Diagnoses Diagnosis HTN (hypertension), benign- Primary Essential hypertension, benign Mixed hyperlipidemia Hypothyroidism, unspecified type Parkinson's disease without dyskinesia, unspecified whether manifestations fluctuate (CMS/HCC) Ascending aorta dilatation (CMS/HCC) Thoracic aneurysm without mention of rupture Left shoulder pain, unspecified chronicity Encounter for screening mammogram for breast cancer documented in this encounter Discontinued Medications Medication Sig Discontinue Reason Start Date End Da te amLODIPine (NORVASC) 5 mg tablet Take 1 tablet (5 mg total) by mouth 1 (one) time each day. Therapy completed 02/23/2024 08/27/2024 documented as of this encounter Care Teams Button Attaching Machine Operator Relationship Specialty Start Date End Date Tere Tim MD [address] [place] [id number] PCP - General Internal Medicine 03/02/22 documented as of this encounter
--- OUTSIDE RECORDS SUMMARY | 2024-08-31 10:20 | XMS_ITS | Encounter Summary ---
Author Organization [employer] Address [address] [place] [address] [address] [place] [address] Care Team Providers Care Property Condition Assessor Name Role Phone Unavailable Primary Care Provider [...]
--- OUTSIDE RECORDS SUMMARY | 2024-08-31 10:20 | XMS_ITS | Clinical Summary ---
Author Organization [employer] [facility] Address [address] [place] [address] Care Team Providers Care Casino Manager Name Role Phone Tere Tim MD Primary Care Prov ider Allergies No known active allergies Medications Medication Sig Dispensed Refills Start Date End Date Status levothyroxine (SYNTHROID, LEVOTHROID) 75 mcg tablet Take 1 tablet (75 mcg total) by mouth 1 (one) time each day. 02/23/2024 Active hydroCHLOROthiazid e (MICROZIDE) 12.5 mg capsule Take 1 capsule [...] carbonate (CALCIUM ORAL) Take by mouth. Active amLODIPine (NORVASC) 5 mg tablet Take 1 tablet (5 mg total) by mouth 1 (one) time each day. 02/23/2024 08/27/2024 Discontinued( Therapy completed) Active Problems Problem Noted Date Diagnosed Date [...] had followed for a little while at [facility] with a stable purely groundglass nodule measuring [...] her CAT scans moving forward here at [facility]. Osteoporosis 10/18/2022 Overview (06/16/2024): DXA BONE DENSITY [...] to have osteoporosis by WHO criteria. The [facility] Department of Internal Medicine recommends using [...] alternative screening schedule based on laurie Weems., [facility] August 19, 2011 for patients with osteopenia (based on hip BMD T- score) is as follows: * advanced osteopenia (T scores -2.00 to -2.49), BMD testing every year * moderate osteopenia (T scores -1.50 to -1.99), BMD testing every 5 years mild osteopenia or normal BMD (T scores -1.50 and higher), BMD testing every 15 years Parkinson's disease 06/07/2022 Overview (06/16/2024): Dr Lawson Assessment & Plan (08/29/2024 5:34 PM EST): currently on levodopa carbidopa carbidopa/levodopa. Follows regularly with neurology. Encouraged to continue taking this medication. Hyperlipidemia 07/01/2021 Overview (06/16/2024): Last Assessment & [...] the LDL down to 70 or below. Assessment & Plan (08/29/2024 5:34 PM EST): Currently on atorvastatin 20 mg a day. She is encouraged to follow a low-fat diet and exercise as above. Will check a lipid profile before her next visit. Orders: Comprehensive metabolic panel; Future Lipid panel with reflex to direct LDL; Future Thyroid stimulating hormone with reflex to free t4 and free t3; Future Ascending aorta dilatation 04/02/2015 Overview (06/16/2024): CT [...] lasted over 15 minutes to call 911. Assessment & Plan (08/29/2024 5:34 PM EST): She follows regularly with cardiology. Stable findings. Depression, major, recurrent 01/16/2014 Weakness 07/06/2012 Lacunar infarction 07/03/2012 Overview (06/16/2024): Right basal ganglia- old seen on CT at [facility] 06/2012 Asthma 02/11/2012 HTN (hypertension), benign 09/08/2011 Overview (06/16/2024): Carotid cuplex b/l: less than 50% ica stenosis Assessment & Plan (08/29/2024 5:34 PM EST): Today 126/85. Currently on amlodipine 5 mg a day, hydrochlorothiazide 25 mg. Patient is encouraged to follow a low-salt diet and exercise as much as he can. Continue same regimen, will check a CMP before her next visit. Orders: Comprehensive metabolic panel; Future Lipid panel with reflex to direct LDL; Future Thyroid stimulating hormone with reflex to free t4 and free t3; Future Hypothyroid 09/08/2011 Assessment & Plan (08/29/2024 5:34 PM EST): Currently on levothyroxine 75 mcg a day. Last TSH within normal limits. We will continue same dose for now. New TSH before next appointment. Encounters Date Type Department Care Team Description 08/27/2024 8:45 AM EST Office Visit Adult Medicine [address] [phone] Tere Garcia MD HTN (hypertension), benign (Primary Dx); Mixed hyperlipidemia; Hypothyroidism, unspecified type; Parkinson's disease without dyskinesia, unspecified whether manifestations fluctuate (CMS/HCC); Ascending aorta dilatation (CMS/HCC); Left shoulder pain, unspecified chronicity from Last 3 Months Immunizations Name Administration Dates Next Due Influenza [...] file Not on file Not on file Obstetrics History Last Filed [...] Mass Index 27.59 08/27/2024 8:33 AM EST Plan of Treatment Upcoming Encounters Date Type Department Care Team (Late st Contact Info) Description 09/17/2024 9:50 AM EST Appointment Radiology Department - [address] [phone] 11/27/2024 9:00 AM EDT Office Visit Adult Medicine [address] [phone] Tere Tim MD [address] [place] [address] Health Maintenance Due Date Last Done Comments Zoster Vaccines (1 of 2) 2002 RSV Immunization Patients 60+ Years Old (1 - Risk 60-74 years 1-dose series) 2012 Medicare Annual Wellness Visit 02/02/2020 Social Influencers of Health Screening 02/02/2020 COVID-19 Vaccine (3 - season) 2024 11/24/2020, 10/27/2020 Influenza Vaccine (#1) 2025 05/23/2020, 2018 Postponed from 04/01/2024 (Patient Refused) Colorectal Cancer Screening: Colonoscopy 02/22/2025 09/08/2010 Postponed [...] to have osteoporosis by WHO criteria. The [facility] Department of Internal Medicine recommends using [...] alternative screening schedule based on laurie Weems., [facility] August 19, 2011 for patients with osteopenia [...] to have osteoporosis by WHO criteria. The [facility] Department of Internal Medicine recommendsusing National [...] Optional alternative screening schedule based on laurie Wemes., NEJMJanuary 2011 for patients with osteopenia (based on hip BMD T-score) is as follows: * advanced osteopenia (T scores -2.00 to -2.49), BMD testing every year * moderate osteopenia (T scores -1.50 to -1.99), BMD testing every 5years mild osteopenia or normal BMD (T scores -1.50 and higher), BMD testingevery 15 years Laura PEREYRA IMG DXA PROCEDURES from Last 3 Months or Most Recently Relevant to Health Maintenance Care Teams Casino Manager Relationship Specialty Start Date End Date Tere Tim MD [address] [place] [phone] PCP - General Internal Medicine 03/02/22
== END ==
LOC: HO.CARD 09:45
PROVIDERS: PCP Internal Medicine; Visit Provider Internal Medicine
DX: I77.810 Thoracic aortic ectasia (principal)
CPT/HCPCS: 93306

== ENCOUNTER → 2024-08-31 09:47 | Outpatient (BNV) | payer MEDICARE, SELFPAY | PROVIDERS: PCP Internal Medicine; Visit Provider Internal Medicine | DX: I77.810 Thoracic aortic ectasia (principal) | CPT/HCPCS: 93306 ==

== ENCOUNTER 2024-11-15 13:36 | Outpatient (AMB) | payer MEDICARE, SELFPAY ==
--- NOTE | 2024-11-15 14:28 | A.OFFVIS_ITS ---
Vital Signs 11/15/24 14:30 Height 5 ft 1 in Weight 141 lb 1.533 oz BMI 26.7 BP 120/68 Blood Pressure Location Lt brachial Position Sitting Pulse 78 Pulse Source Monitor Intake Visit Reasons: 3m follow up Allergies No Known Allergies Allergy (Verified 01/28/23 09:42) Medication List - Last Reconciled 11/15/24 by Bereket Melendez NP atorvastatin 20 mg PO QPM carbidopa-levodopa 25-100 mg 1 tab PO TID hydrochlorothiazide 25 mg PO DAILY levothyroxine (Euthyrox) 75 mcg PO DAILY HPI Comments Details: This is a 74-year-old female patient presenting for a follow-up visit. Patient with a history of hypertension, hyperlipidemia and was referred to the office earlier this year after an ascending aortic aneurysm was identified on chest CT. She subsequently underwent an echocardiogram. The patient is reporting generally feeling well but endorses intermittent dizziness primarily occurring when lying down or with changes in head position. She denied any associated symptoms such as exertional chest pain, shortness of breath, palpitations, fatigue, orthopnea, PND, leg edema, presyncope, or syncope. She notes that her primary care provider discontinued amlodipine suspecting it could have contributed to the dizziness. However, her symptoms have persisted despite the change in medication. [facility] Medical History Ascending aorta dilatation Former smoker, stopped smoking in distant past Hypothyroidism Hypertension History of TIA (transient ischemic attack) Surgical History History of hemorrhoidectomy Family History Father No problems noted. Mother No problems noted. Social History Patient Tobacco Use Status: Former Tobacco user Cigarette Packs Per Day: 1 Cigarettes Per Day: 20 Years Smoked: Smoked for 29 years onset age 18 at 1 pack per day. Quit 25 years ago. Review of Systems Const Denies weakness ENT Denies dizziness Card Denies chest pain, Denies chest pain with activity, Denies syncope, Denies rapid heart rate, Denies pedal edema, Denies edema, Denies leg edema, Denies lightheadedness, Denies palpitations, Denies dyspnea, Denies dyspnea on exertion and Denies orthopnea Resp Denies cough, Denies dyspnea and Denies dyspnea on exertion GI Denies hematochezia and Denies change in stool character Musc Denies abnormal gait, Denies muscle cramps, Denies muscle weakness, Denies numbness, Denies radiating pain into limb and Denies tingling Neuro Denies abnormal gait, Denies dizziness, Denies syncope, Denies numbness, Denies tingling and Denies weakness Endo Denies palpitations Physical Exam Vital Signs: Last Vital Signs Pulse 78 11/15/24 14:30 BP 120/68 11/15/24 14:30 BMI result Body Mass Index 26.7 Const General: cooperative, healthy appearing, comfortable and no acute distress Orientation/consciousness: patient oriented x3 HEENT Head: Yes normal to inspection Neck Neck: Yes normal visual inspection, Yes trachea midline and Yes supple Chest Chest palpation & inspection: normal inspection of the chest Resp Effort & Inspection: normal respiratory effort Auscultation: clear to auscultation bilaterally, no crackles, no rales, no rhonchi and no wheezes Cardio Jugular venous distension: no JVD Palpation: normal PMI Rate: regular rate Rhythm: regular rhythm Heart sounds: S1 normal heart sound present, S2 normal heart sound present, no click, no gallops, no murmurs and no rubs Peripheral pulses: Peripheral pulses 2+ throughout GI Inspection: Yes normal to inspection Palpation (GI): Soft to palpation Auscultation: normal bowel sounds Skin General skin exam: no rashes or lesions noted Neuro General: patient oriented x3 Extrem General: Yes normal to inspection, No no pedal edema and No calf tenderness Psych Appearance: grossly normal Mental Status: mental status grossly normal Speech and movement: Normal speech and movement present Assessment & Plan Assessment & Plan (1) Ascending aorta dilatation: Code(s): I77.810 - Thoracic aortic ectasia Category: Medical Plan: 08/31/2024-patient underwent echo study that showed a normal EF at 67% with mild dilation of the ascending aorta measuring at 4.10 cm. We will monitor this with annual echo. Clinically stable. (2) Hypertension: Code(s): I10 - Essential (primary) hypertension Category: Medical Plan: Blood pressure today is well-controlled. Patient continues with hydrochlorothiazide therapy. Ideally, blood pressure goal less than 130/80. Advised patient to monitor blood pressures at home and to keep a log of it. Her dizziness sounds less likely cardiac etiology and more likely vertigo. Advised adequate hydration. We will check for electrolyte imbalance. In case of worsening symptoms, patient will reach out to the office. (3) Hyperlipidemia: Code(s): E78.5 - Hyperlipidemia, unspecified Category: Medical Plan: Patient states her cholesterol levels has been stable. Continue statin therapy. Ideally, LDL goal closer to 70. Advised heart healthy diet, regular exercise, med compliance, and management of vascular risk factors. We will follow up in 1 year's time with a repeat echo. In the interim, patient will call the office with any concerns or change in symptoms. This note was generated using voice recognition software. While every effort has been made to ensure accuracy and proper tour consultant, there may be occasional errors that could affect the content or meaning of the described symptoms. Orders: Orders CA echo transthoracic complete 1 Year I77.810 - Thoracic aortic ectasia Basic Metabolic Panel Today I10 - Essential (primary) hypertension Coding Level of Care Code Tele Est Pt Level 4 (56441) Complex EM visit Add On G2211 Diagnoses Ascending aorta dilatation I77.810 Hypertension I10 Hyperlipidemia E78.5 Time Spent (min) 31 Comment Time spent in reviewing the chart, test results, assessment, counseling and documentation.
[2024-11-15 14:30] VITALS: BP 120/68; PULSE 78; BMI 26.7
--- OUTSIDE RECORDS SUMMARY | 2024-11-15 16:41 | XMS_ITS | Clinical Summary ---
Author Organization [facility] Address [address] [place] [address] Care Team Providers Care Qualitative Field Project Manager Name Role Phone Unavailable Primary Care Provider Unavailabl e Source Comments PLEASE NOTE, if this patient is a minor, it may be UNLAWFUL to discuss sensitive information that is contained in these records (such as FAMILY PLANNING, MENTAL HEALTH or SUBSTANCE ABUSE) with the minor patient's parent or other person without the patient's specific authorization.[facility] Immunizations Immunization Administration Dates Next Due Moderna COVID-19 Vaccine, [...] (2 - Td or Tdap) 06/09/2022 012 [id number] (3 - season) 2024 021, 10/27/2020 Imm-Influenza (#1) 2024 05/23/2020, 07/18/2019 Alcohol and Drug Screen 08/01/2024 Depression Annual Screen 08/01/2024 Lipid Screening 09/25/2025 09/25/2020 Insurance [employer] MEDICARE COMPLETE CHO
--- OUTSIDE RECORDS SUMMARY | 2024-11-15 16:41 | XMS_ITS | Clinical Summary ---
Author Organization [facility] Address [address] [place] [address] Care Team Providers Care Contract Negotiation Manager Name Role Phone Tere Tim MD Primary Care Prov ider Allergies No known active allergies Medications hydroCHLOROthi azide (MICROZIDE) 12.5 mg capsule Take 1 capsule (12.5 mg total) by mouth 1 (one) time each day. 4 Active carbidopa-levo dopa (SINEMET) 25-100 mg per tablet Take 1 tablet by mouth. 3 Active multivitamin with minerals (CENTRUM/CERTA VIT) 18-400 mg-mcg tablet tablet Take by mouth 1 (one) time each day. Active calcium carbonate (CALCIUM ORAL) Take by mouth. Active levothyroxine (SYNTHROID, LEVOTHROID) 75 mcg tablet Take 1 tablet by mouth once daily 90 tablet 5 Active atorvastatin (LIPITOR) 20 mg tablet Take 1 tablet by mouth once daily 90 tablet 5 Active atorvastatin (LIPITOR) 20 mg tablet Take 1 tablet (20 mg total) by mouth 1 (one) time each day. 4 11/06/19 25 Discontinued Active Problems Problem Noted Date Diagnosed Date [...] had followed for a little while at [facility] with a stable purely groundglass nodule measuring [...] scans moving forward here at [facility]. Osteoporosis 10/18/2022 Overview (06/16/2024): DXA BONE [...] to have osteoporosis by WHO criteria. The [facility] Department of Internal Medicine recommends using National [...] alternative screening schedule based on laurie Weems., [facility] August 19, 2011 for patients with osteopenia (based on hip BMD T- score) is as follows: * advanced osteopenia (T scores -2.00 to -2.49), BMD testing every year * moderate osteopenia (T scores -1.50 to -1.99), BMD testing every 5 years mild osteopenia or normal BMD (T scores -1.50 and higher), BMD testing every 15 years Parkinson's disease ([facility] V24, [facility] V28) 1 08/07/2021 Overview (06/16/2024): Dr Lawson Assessment & Plan [...] and free t3; Future Ascending aorta dilatation ([facility] V24) 015 Overview (06/16/2024): CT 02/28/15: measuring 4.3 cm [...] with cardiology. Stable findings. Depression, major, recurrent ([facility]/HCC V24) 01/16 Weakness 07/06/2012 Lacunar infarction (CMS/HCC V24, CMS/HCC V28) Overview (06/16/2024): Right basal ganglia- old seen on CT at [facility] 06/2012 Asthma 02/11/2012 HTN (hypertension), benign 09/08/2011 [...] Encounters Date Type Department Care Team Description 11/05/2024 Telephone Adult Medicine [address] [phone] Tere Alex MD Med Refill 09/18/2024 10:13 AM EST - 09/18/2024 11:59 PM EST Hospital Encounter Radiology Department - [address] [phone] Encounter for screening mammogram for breast cancer Discharge Disposition: Home or Self Care 08/27/2024 8:45 AM EST Office Visit Adult Medicine [address] [phone] Tere Alex MD HTN (hypertension), benign (Primary Dx); Mixed hyperlipidemia; Hypothyroidism, unspecified type; Parkinson's disease without dyskinesia, unspecified whether manifestations fluctuate (CMS/HCC V24, CMS/HCC V28); Ascending aorta dilatation (CMS/HCC V24); Left shoulder pain, unspecified chronicity from Last [...] attack) DX:TIA (transient ischemic attack) Parkinson's disease (CMS/HCC V24, CMS/HCC V28) 06/07/2022 DX:Parkinson's disease (HCC) ; COMMENT: Dr Lawson Family History Medical History [...] drink = 0.6 oz pur e alcohol) Comments Unknown Sex and Gender Information Value Date Recorded Sex Assigned at Not on file Legal Sex Female 6:47 PM EDT Gender Identity Not on file Sexual Orientation Not on file Obstetrics History Para Term AB IAB SAB Ectopic Multiple Livin g Live Births 4 4 4 4 Date Outcome GA Total Labor Labor/2nd/3rd Weight Sex Type Anes PTL Mora A1 A5 Name Clin Term Term Term Term Last Filed Vital Signs Vital Sign Reading [...] Care Team (Late st Contact Info) Description 11/27/2024 9:00 AM EDT Office Visit Adult Medicine [facility] [address] [place] [phone] Tere Tim MD [address] [place] [id number] Health Maintenance Due Date Last Done Comments Zoster Vaccines (1 of 2) 2002 RSV Immunization Adult Patients (1 - Risk 60-74 years 1-dose series) 2012 Medicare Annual Wellness Visit 02/02/2020 Social Influencers of Health Screening 02/02/2020 COVID-19 Vaccine ( - season) 2024 11/24/2020, 10/27/2020 Colorectal Cancer Screening: Colonoscopy 02/22/2025 09/08/2010 Postponed from 09/08/2020 (Patient Refused) Depression Screening 02/22/2025 02/23/2024 Falls Risk Assessment 02/22/2025 02/23/2024 Pneumococcal Vaccine: 50+ Years (2 of 2 - PPSV23) 02/22/2025 03/29/2018 Postponed from 05/24/2018 (Patient Refused) Influenza Vaccine (Season Ended) 2025 05/23/2020, 07/18/2019 Hypertension/CHF/CAD Annual BMP Blood Test 09/04/2025 09/04/2024, 02/27/2024 Breast Cancer Screening 09/18/2026 09/18/19, 09/06/2023, 07/22/2022, Additional history exists Cholesterol Screening (Lipid Panel) 09/04/2029 09/04/2024, 02/27/2024 DTaP,Tdap,and Td Vaccines (3 - Td [...] patient's age to complete this topic Meningococcal B Vaccine Aged Out No l onger eligible based on patient's age to complete this topic RSV Immunization Patients Under 20 months Aged Out No longer eligible based on patient's age to complete this topic Varicella Vaccines Aged Out No longer eligible based on patient's age to complete this topic Procedures Procedure Name Priority Date/Time Associated Diagnosis Comments MG MAMMO DIGITAL SCREENING W CARLOS BILAT Routine 09/18/2024 10:29 AM EST Encounter for screening mammogram for breast cancer COMPREHENSIVE METABOLIC PANEL Routine 09/04/2024 8:59 AM EST HTN (hypertension), benign Mixed hyperlipidemia LIPID PANEL WITH REFLEX TO DIRECT LDL Routine 09/04/2024 8:59 AM EST HTN (hypertension), benign Mixed hyperlipidemia THYROID STIMULATING HORMONE WITH REFLEX TO FREE T4 AND FREE T3 Routine 09/04/2024 8:59 AM EST HTN (hypertension), benign Mixed hyperlipidemia DXA BONE DENSITY STUDY 1+ SITS AXIAL SKEL Routine 10/18/2022 10:12 AM EDT Asymptomatic menopausal state from Last 3 Months or Most Recently Relevant to Health Maintenance Results * MG Mammo Digital Screening w Carlos bilat (09/18/2024 10:29 AM EST) Anatomical Region Laterality Modality Breast Bilateral Mammography 09/18/2024 4:25 PM EST Impressions 09/18/2024 4:26 PM EST No mammographic evidence of malignancy. BREAST DENSITY: B - There are scattered areas of fibroglandular density. BI-RADS CATEGORY: 1 - NEGATIVE RECOMMENDATION: Screening bilateral mammogram is recommended in 1 year. MAMMO LOCATION: [facility], [address] [place] [address], [id number], . -------- FINAL REPORT -------- Dictated By: Laina Fraser Dictated Date: 09/18/2024 16:25 ET Assigned Physician: Laina Fraser Reviewed and Electronically Signed By: Laina Fraser Signed Date: 09/18/2024 16:26 ET Workstation ID: [id number] Transcribed By: Self Edit Transcribed Date: 09/18/2024 16:25 ET Narrative 09/18/2024 4:26 PM EST EXAM: Screening Mammogram CLINICAL: 74 years old, Female, routine annual exam. COMPARISON: 09/06/2023 and as far back as 07/01/2020 ?? TECHNIQUE: Bilateral MLO and CC views were obtained digitally with 3-D mammogram (digital breast tomosynthesis). Computer-aided detection was utilized in evaluation of this exam (CAD). FINDINGS: No new suspicious mass, architectural distortion, or suspicious calcifications. Procedure Note Laina Fraser MD - 09/18/2024 EXAM: Screening Mammogram CLINICAL: 74 years old, Female, routine annual exam. COMPARISON: 09/06/2023 and as far back as 07/01/2020 TECHNIQUE: Bilateral MLO and CC views were obtained digitally with 3-Dmammogram (digital breast tomosynthesis). Computer-aided detection wasutilized in evaluation of this exam (CAD). FINDINGS: No new suspicious mass, architectural distortion, or suspiciouscalcifications. IMPRESSION: No mammographic evidence of malignancy. BREAST DENSITY: B - There are scattered areas of fibroglandular density. BI-RADS CATEGORY: 1 - NEGATIVE RECOMMENDATION: Screening bilateral mammogram is recommended in 1 year. MAMMO LOCATION: [facility], [address] [place] [address], [id number], . -------- FINAL REPORT -------- Dictated By: Laina Fraser Dictated Date: 09/18/2024 16:25 ET Assigned Physician: Laina Fraser Reviewed and Electronically Signed By: Laina Fraser Signed Date: 09/18/2024 16:26 ET Workstation ID: [id number] Transcribed By: Self Edit Transcribed Date: 09/18/2024 16:25 ET Tere Tim MD IMG BI PROCEDURES Final Result * Thyroid stimulating hormone with reflex to free t4 and free t3 (09/04/2024 8:59 AM EST) TSH 1.05 0.40 - 4.00 mcIU/mL LAB CHEMISTRY METHOD 09/04/2024 12:58 PM [facility] Blood Venous blood specimen / Unknown Venipuncture / Unknown 09/04/2024 8:59 AM EST 09/04/2024 8:59 AM EST Tere Tim MD LAB BLOOD ORDERABL ES Final Result [facility] [address] [place] [address], [place] [phone] * Lipid panel with reflex to direct LDL (09/04/2024 8:59 AM EST) Cholesterol 128 0 - 200 mg/dL LAB CHEMISTRY METHOD 09/04/2024 12:52 PM EST [facility] Triglycerides 94 0 - 150 mg/dL LAB CHEMISTRY METHOD 09/04/2024 12:52 PM [facility] HDL 60 >=40 mg/dL LAB CHEMISTRY METHOD 09/04/2024 12:52 PM EST [facility] LDL Calculated 49 0 - 100 mg/dL LAB CHEMISTRY METHOD 09/04/2024 12:52 PM [facility] VLDL Cholesterol Shahid 18.8 mg/dL LAB CHEMISTRY METHOD 09/04/2024 12:52 PM [facility] Non HDL Chol. (LDL+VLDL) 68 <145 mg/dL LAB CHEMISTRY METHOD 09/04/2024 12:52 PM [facility] Chol/HDL Ratio 2.1 0.0 - 4.4 LAB CHEMISTRY METHOD 09/04/2024 12:52 PM [facility] Blood Venous blood specimen / Unknown Venipuncture / Unknown 09/04/2024 8:59 AM EST 09/04/2024 8:59 AM EST us Tere Tim MD LAB BLOOD ORDERABL ES Final Result [facility] [address] [place] [address], * Comprehensive metabolic panel (09/04/2024 8:59 AM EST) Sodium 140 133 - 145 mmol/L LAB CHEMISTRY METHOD 09/04/2024 12:51 PM [facility] Potassium 3.9 3.5 - 5.5 mmol/L LAB CHEMISTRY METHOD 09/04/2024 12:51 PM [facility] Chloride 107 96 - 110 mmol/L LAB CHEMISTRY METHOD 09/04/2024 12:51 PM [facility] CO2 28 21 - 32 mmol/L LAB CHEMISTRY METHOD 09/04/2024 12:51 PM [facility] Anion Gap 5 3 - 11 LAB CHEMISTRY METHOD 09/04/2024 12:51 PM [facility] Glucose 95 70 - 100 mg/dL LAB CHEMISTRY METHOD 09/04/2024 12:51 PM [facility] BUN 14 5 - 25 mg/dL LAB CHEMISTRY METHOD 09/04/2024 12:51 PM [facility] Creatinine 0.67 0.50 - 1.10 mg/dL LAB CHEMISTRY METHOD 09/04/2024 12:51 PM [facility] eGFR 93 >=60 mL/min/1. 73m2 LAB CHEMISTRY METHOD 09/04/2024 12:51 PM [facility] Comment:Calculation based on the??Chronic Kidney Disease Epidemiology Collaboration (CKD-EPI) equation refit??without adjustment for race. BUN/Creatinine Ratio 20.9 LAB CHEMISTRY METHOD 09/04/2024 12:51 PM [facility] Calcium 9.9 8.5 - 10.5 mg/dL LAB CHEMISTRY METHOD 09/04/2024 12:51 PM [facility] AST (SGOT) 15 10 - 42 unit/L LAB CHEMISTRY METHOD 09/04/2024 12:51 PM [facility] ALT (SGPT) 35 10 - 60 unit/L LAB CHEMISTRY METHOD 09/04/2024 12:51 PM [facility] Alkaline Phosphatase 113 42 - 121 unit/L LAB CHEMISTRY METHOD 09/04/2024 12:51 PM [facility] Total Protein 7.1 6.0 - 8.0 g/dL LAB CHEMISTRY METHOD 09/04/2024 12:51 PM [facility] Albumin 4.2 3.2 - 5.0 g/dL LAB CHEMISTRY METHOD 09/04/2024 12:51 PM [facility] Total Bilirubin 0.7 0.0 - 1.4 mg/dL LAB CHEMISTRY METHOD 09/04/2024 12:51 PM [facility] Blood Venous blood specimen / Unknown Venipuncture / Unknown 09/04/2024 8:59 AM EST 09/04/2024 8:59 AM EST us Tere Tim MD LAB BLOOD ORDERABL ES Final Result [facility] [address] [place] [address], * DXA BONE DENSITY STUDY 1+ SITS [...] to have osteoporosis by WHO criteria. The [facility] Department of Internal Medicine recommends using National [...] alternative screening schedule based on laurie Weems., [facility] August 19, 2011 for patients with [...] to have osteoporosis by WHO criteria. The [facility] Department of Internal Medicine recommendsusing National Osteoporosis [...] alternative screening schedule based on [facility] Weems., [facility] for patients with osteopenia (based on hip BMD T-score) is as follows: * advanced osteopenia (T scores -2.00 to -2.49), BMD testing every year * moderate osteopenia (T scores -1.50 to -1.99), BMD testing every 5years mild osteopenia or normal BMD (T scores -1.50 and higher), BMD testingevery 15 years Laura PEREYRA IM DXA PROCEDURES Final Result from Last 3 Months or Most Recently Relevant to Health Maintenance Insurance [employer] Care Teams Contract Negotiation Manager Relationship Specialty Start Date End Date Tere Tim MD [address] [place] [address] [phone] PCP - General Internal Medicine 03/02/22
== END 2024-11-15 15:02 | disposition home or self-care (01) ==
LOC: HO.HCS 13:37
PROVIDERS: PCP Internal Medicine
DX: I77.810 Thoracic aortic ectasia (principal); I10 Essential (primary) hypertension; E78.5 Hyperlipidemia, unspecified
CPT/HCPCS: 99214; G2211

== ENCOUNTER → 2024-11-15 13:36 | Outpatient (BNVA) | payer MEDICARE, OTHER, SELFPAY | PROVIDERS: PCP Internal Medicine | DX: I77.810 Thoracic aortic ectasia (principal); I10 Essential (primary) hypertension; E78.5 Hyperlipidemia, unspecified | CPT/HCPCS: 99212 ==

== ENCOUNTER 2025-02-27 11:25 | Outpatient (AMB) | payer MEDICARE, SELFPAY ==
--- NOTE | 2025-02-27 11:30 | MHC.OFFVIS ---
Vital Signs 02/27/25 11:30 Height 5 ft 1 in Intake Visit Reasons: 6 months PD Allergies No Known Allergies Allergy (Verified 02/27/25 11:31) Medication List - Last Reconciled 02/27/25 by Naye Adkins CNP amlodipine 5 mg PO DAILY atorvastatin 20 mg PO QPM carbidopa-levodopa 25-100 mg 1 tab PO TID hydrochlorothiazide 25 mg PO DAILY levothyroxine (Euthyrox) 75 mcg PO DAILY HPI Comments Details: She was doing okay. Tremors were stable, L > R and?worse when nervous. No functional impairment. No difficulty eating, drinking, or swallowing. Doing house chores without difficulty. Walking some. No falls. Occasionally, she felt stiff when she first stood after sitting for an extended period of time. She was waking a few times during the night to use bathroom, but usually able to fall back to sleep. She had an old lacunar infarct in the right sylvian area. Normal carotid ultrasound. Since 09/2021, she noted intermittent tremor in the left upper extremity, sometimes holding it up and sometimes at rest. It has not impaired her function. She also feels that her whole body is tight particularly on the left side. No significant change in her gait. Speech is normal. No family history of tremor. [facility] Medical History (Updated 02/27/25 @ 11:37 by Naye Adkins CNP) Depression Lacunar stroke Ascending aorta dilatation Former smoker, stopped smoking in distant past Hypothyroidism Hypertension History of TIA (transient ischemic attack) Surgical History History of hemorrhoidectomy Family History Father No problems noted. Mother No problems noted. Social History Patient Tobacco Use Status: Former Tobacco user Cigarette Packs Per Day: 1 Cigarettes Per Day: 20 Years Smoked: Smoked for 29 years onset age 18 at 1 pack per day. Quit 25 years ago. Review of Systems Const Denies chills, Denies daytime sleepiness, Reports difficulty sleeping, Denies fatigue, Denies fever(s), Denies frequent falls, Denies headache(s), Denies increased appetite, Denies poor appetite, Denies snoring, Denies weakness, Denies weight gain and Denies weight loss Eyes Denies loss of vision ENT Denies vertigo, Denies dizziness, Denies headache(s) and Denies neck pain Card Denies chest pain at rest, Denies chest pain with activity, Denies syncope, Denies leg edema, Denies palpitations, Denies dyspnea and Denies dyspnea on exertion Resp Denies cough, Denies dyspnea, Denies dyspnea on exertion and Denies snoring GI Denies abdominal pain, Denies constipation, Denies heartburn, Denies diarrhea and Denies nausea Denies urinary frequency, Denies urinary incontinence and Denies urinary urgency Musc Denies abnormal gait, Denies back pain, Denies myalgias, Denies arthralgias, Denies neck pain, Denies numbness and Denies tingling Neuro Denies abnormal gait, Denies vertigo, Denies dizziness, Denies syncope, Denies frequent falls, Denies headache(s), Denies lack of coordination, Denies loss of vision, Denies memory loss, Denies numbness, Denies Other visual disturbances, Denies restless legs, Denies seizure-like activity, Denies tingling, Denies paresthesias, Reports tremor(s) and Denies weakness Psych Reports anxiety, Denies depression, Denies auditory hallucinations, Denies memory loss and Denies visual hallucinations Endo Denies fatigue and Denies palpitations Physical Exam Const Other: General Appearance:? normal, in no acute distress. Heart:? S1, S2 normal, no murmurs. Lungs:? clear anteriorly and posteriorly. Musculoskeletal:? normal. Extremities:? no edema. Psych:? alert, oriented, cognitive function intact, cooperative with exam. Neuro Other: Abnormal Neurological Findings:?Decreased arm swing on left. Resting tremor of left hand noted intermittently, infrequent. Very mild cogwheeling rigidity to L. Decreased blinking frequency. Mental Status: alert and oriented X 3. Normal attention, orientation, memory, and affect. Cranial Nerves: Pupils are equal, round, and reactive to light. External ocular muscles are intact. Visual humphrey are full, no ptosis. Face is symmetrical, no facial weakness or droop. Facial sensations are normal. Tongue protrudes in midline. Palate elevates symmetrically. Shoulder shrugging is normal Motor Examination: Normal muscle tone, bulk and strength. No atrophy or fasciculations. No drift of the extended upper extremities. DTR 2+. Plantars are flexor. Straight Leg Raisin degrees. Sensory Exam: Normal light touch, temperature, pinprick, vibration, and joint-position sensations. Rhomberg sign is absent. Coordination: No ataxia. No titubation. Obhogo-ka-piyo, vque-sjvg-pkus test, and rapid alternating movements were normal. Gait Exam: Decreased arm swing on left. Cerebellar Signs: Hvvlin-[id number] is okay. Extrapyramidal System: Resting tremor of left hand noted intermittently, infrequent. Very mild cogwheeling rigidity to L. Decreased blinking frequency with?normal facial expressions. Decreased arm swing?on left. No bradykinesia, no bradyphrenia.? Speech: Normal. Assessment & Plan Assessment & Plan (1) Parkinsons disease: Code(s): G20.A1 - Parkinson's disease without dyskinesia, without mention of fluctuations Category: Medical Qualifiers: Dyskinesia presence: without dyskinesia Fluctuating manifestations: without fluctuating manifestations Qualified Code(s): G20.A1 - Parkinson's disease without dyskinesia, without mention of fluctuations Plan: Continue carbidopa-levodopa 25-100mg 1 tablet three times a day. Stay physically active. (2) History of lacunar cerebrovascular accident: Code(s): Z86.73 - Personal history of transient ischemic attack (TIA), and cerebral infarction without residual deficits Category: Medical Plan . Medications: New carbidopa-levodopa 25-100 mg (Sinemet) 1 tab PO TID 270 tabs 1RF 90 days Discontinued carbidopa-levodopa 25-100 mg Discontinued Reason: Order 1 tab PO TID Coding Level of Care Code Est Pt Level 3 (60371) Diagnoses Parkinson's disease without dyskinesia or fluctuating manifestations G20.A1 Dyskinesia presence: without dyskinesia Fluctuating manifestations: without fluctuating manifestations History of lacunar cerebrovascular accident Z86.73
--- OUTSIDE RECORDS SUMMARY | 2025-02-27 12:27 | XMS_ITS | Clinical Summary ---
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
--- OUTSIDE RECORDS SUMMARY | 2025-02-27 12:27 | XMS_ITS | Encounter Summary ---
Author Organization [facility] Address [address] [place] [address] [address] [place] [address] Care Team Providers Care Supervisor [employer] Name Role Phone Unavailable Primary Care Provider [...]
--- OUTSIDE RECORDS SUMMARY | 2025-02-27 12:27 | XMS_ITS | Clinical Summary ---
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 3 Active multivitamin with minerals (CENTRUM/CERTA VIT) 18-400 mg-mcg tablet tablet Take by mouth 1 (one) time each day. Active hydroCHLOROthi azide (MICROZIDE) 12.5 mg capsule Take 1 capsule by mouth once daily 90 capsule 2 5 Active levothyroxine (SYNTHROID, LEVOTHROID) 75 mcg tablet Take 1 tablet by mouth once daily 90 tablet 5 Active atorvastatin (LIPITOR) 20 mg tablet Take 1 tablet by mouth once daily 90 tablet 5 Active atorvastatin (LIPITOR) 20 mg tablet Take 1 tablet by mouth once daily 90 tablet 5 02/13/20 25 Discontinued Active Problems Problem Noted Date [...] had followed for a little while at [facility] with a stable purely groundglass nodule measuring [...] her CAT scans moving forward here at [facility]. Osteoporosis 10/18/2022 Overview (06/16/2024): DXA BONE [...] to have osteoporosis by WHO criteria. The [facility] Department of Internal Medicine recommends [...] screening schedule based on christopher Weems al., [facility] August 19, 2011 for patients with osteopenia (based on hip BMD T- score) is as follows: * advanced osteopenia (T scores -2.00 to -2.49), BMD testing every year * moderate osteopenia (T scores -1.50 to -1.99), BMD testing every 5 years mild osteopenia or normal BMD (T scores -1.50 and higher), BMD testing every 15 years Parkinson's disease ([facility] V24, [facility] V28) 1 08/07/2021 Overview (06/16/2024): Dr Lawson [...] and free t3; Future Ascending aorta dilatation ([facility] V24) 015 Overview (06/16/2024): CT 02/28/15: measuring [...] with cardiology. Stable findings. Depression, major, recurrent ([facility] V24) 01/16 Weakness 07/06/2012 Lacunar infarction ([facility] V24, [facility] V28) Overview (06/16/2024): Right basal ganglia- old seen on CT at [facility] 06/2012 Asthma 02/11/2012 HTN (hypertension), benign 09/08/2011 Overview (06/16/2024): Carotid cuplex b/l: less than 50% ica stenosis Assessment & Plan (11/28/2024 5:52 PM EDT): HTN is well controlled, today 127/79. Continue HCTZ. Recommended to follow a low salt diet and exercise as much as she can. Assessment & Plan (08/29/2024 5:34 PM EST): [...] t3; Future Hypothyroid 09/08/2011 Assessment & Plan (11/28/2024 5:52 PM EDT): Currently on levothyroxine 75mcg. Last TSH 1.05. Continue same dose. Assessment & Plan (08/29/2024 5:34 PM EST): Currently on levothyroxine 75 mcg a day. Last TSH within normal limits. We will continue same dose for now. New TSH before next appointment. Encounters Date Type Department Care Team Description 02/12/2025 Telephone Thoracic Surgery - [place] [address] [facility] [address] [place] [address] Tenisha Mccullough [place] Appointment (Reschedule Chest CT and Office Visit) 01/04/2025 Telephone Adult Medicine [address] [phone] Tere Tim MD Schedule AWV from Last 3 Months Immunizations Name Administration [...] Date Smoking Tobacco: Former Smokeless Tobacco: Former Tobacco Cessation:Counseling Given: Not Answered Alcohol Use Standard Drinks/Week Comments Yes 0 (1 standard drink = 0.6 oz pur e alcohol) Housing Instability Answer Date Recorde d Are you worried that in the next 2 months you may not have stable housing? No 11/27/2024 Food Access & Nutrition Answer Date Rec orded Do you have access to a vari ety of food including fruits and vegetables? Yes 11/27/2024 Health Literacy Answer Date Recorded How often do you need to hav e someone help you when you read instructions, pamphlets, or other written material from your doctor or pharmacy? Never 11/27/2024 Caregiver: How often do you need to have someone help you when you read instructions, pamphlets, or other written material from your doctor or pharmacy? Not on file 11/27/2024 Financial Risk Answer Date Recorded How hard is it for you to pa y for the very basics like food, housing, medical care, and air conditioning / heating? Not very hard 11/27/2024 Transportation Answer Date Recorded Has the lack of transportati on kept you from meetings, work, or from getting things needed for daily living? No Has the lack of transportati on kept you from medical appointments or from getting medications? No 11/27/2024 Social Isolation Answer Date Recorded How often do you feel lonely or isolated from th ose around you? Never 11/27/2024 Food Risk Answer Date Recorded Within the past 12 months we worried whether our food would run out before we got money to buy more. Never true 11/27/2024 Within the past 12 months th e food we bought just didn't last and we didn't have money to get more. Never true 11/27/2024 Dependent Care Answer Date Recorded Do you need help finding or paying for care for your loved ones. For example, child development specialist or elderly care for an older adult? No 11/27/2024 Education Answer Date Recorded Do you think completing more education or training, like finishing a GED, going to college, or learning a trade, would be helpful for you? No 11/27/2024 Living Situation Answer Date Recorded What is your living situation? 0 11/27/2024 Comments No Sex and Gender Information Value Date Recorded [...] Sign Reading Time Taken Comments Blood Pressure 127/79 11/27/2024 8:50 AM EDT Pulse 67 11/27/2024 8:50 AM EDT Temperature 36.1 C (96.9 F) 11/27/2024 8:50 AM EDT Respiratory Rate 15 11/27/2024 8:50 AM EDT Oxygen Saturation - - Inhaled Oxygen Concentration - - Weight 66 kg (145 lb 6.4 oz) 11/27/2024 8:50 AM EDT Height 154.9 cm (5' 1 ) 11/27/2024 8:50 AM EDT Body Mass Index 27.47 11/27/2024 8:50 AM EDT Plan of Treatment Upcoming Encounters Date Type Department Care Team (Late st Contact Info) Description 03/08/2025 4:00 PM EDT Appointment [facility] CT Scan [address] [place] [phone] 03/12/2025 1:45 PM EDT Office Visit Thoracic Surgery - [place] [address] [facility] [address] [place] [phone] Li Barron, ZOHREH [address] [facility] [address] [place] [address] 05/30/2025 9:45 AM EDT Office Visit Adult Medicine [facility] [address] [place] [address] Tere Tim MD [address] [place] [address] Health Maintenance Due Date Last Done Comments Zoster Vaccines (1 of 2) 2002 RSV Immunization Adult Patients (1 - Risk 60-74 years 1-dose series) 2012 Pneumococcal Vaccine: 50+ Years (2 of 2 - PPSV23) 05/24/2018 03/29/2018 Medicare Annual Wellness Visit 02/02/2020 Colorectal Cancer Screening: Colonoscopy 09/08/2020 09/08/2010 COVID-19 Vaccine ( - season) 2024 11/24/2020, 10/27/2020 Depression Screening 08/01/2024 Falls Risk Assessment 02/22/2025 02/23/2024 Influenza Vaccine (#1) 2025 05/23/2020, 2018 Hypertension/CHF/CAD Annual BMP Blood Test 09/04/2025 09/04/2024, 02/27/2024 Social Influencers of Health Screening 11/27/2025 11/27/2024 Breast Cancer Screening 09/18/2026 09/18/19, 09/06/2023, 07/22/2022, Additional history exists Osteoporosis Screening (Bone Density Screening) 10/19/2027 10/18/2022, 06/25/2019 Cholesterol Screening (Lipid Panel) 09/04/2029 09/04/2024, 02/27/2024 DTaP,Tdap,and Td Vaccines (3 - Td or Tdap) 10/04/2032 10/04/2022, 06/09/2012 Hepatitis C Screening Addressed 11/08/2017 Overri dden [...] is recommended in 1 year. MAMMO LOCATION: [facility], [address] [place] [address], [id number], . -------- FINAL REPORT -------- Dictated By: Laina Fraser Dictated Date: 09/18/2024 16:25 ET Assigned Physician: Laina Fraser Reviewed and Electronically Signed By: Laina Fraser Signed Date: 09/18/2024 16:26 ET Workstation ID: [id number] Transcribed By: Self Edit Transcribed Date: 09/18/2024 [...] is recommended in 1 year. MAMMO LOCATION: [facility], [address] [place] [address], [id number], . -------- FINAL REPORT -------- Dictated By: Laina Fraser Dictated Date: 09/18/2024 16:25 ET Assigned Physician: Laina Fraser Reviewed and Electronically Signed By: Laina Fraser Signed Date: 09/18/2024 16:26 ET Workstation ID: [id number] Transcribed By: Self Edit Transcribed Date: 09/18/2024 16:25 ET us Tere Tim MD IMG BI PROCEDURES Final Result * Lipid panel with reflex to direct LDL (09/04/2024 8:59 AM EST) Cholesterol 128 0 - 200 mg/dL LAB CHEMISTRY METHOD 09/04/2024 12:52 PM EST [facility] Triglycerides 94 0 - 150 mg/dL LAB CHEMISTRY METHOD 09/04/2024 12:52 PM EST [facility] HDL 60 >=40 mg/dL LAB CHEMISTRY METHOD 09/04/2024 12:52 PM EST [facility] LDL Calculated 49 0 - 100 mg/dL LAB CHEMISTRY METHOD 09/04/2024 12:52 PM EST [facility] VLDL Cholesterol Shahid 18.8 mg/dL LAB CHEMISTRY METHOD 09/04/2024 12:52 PM EST [facility] Non HDL Chol. (LDL+VLDL) 68 <145 mg/dL LAB CHEMISTRY METHOD 09/04/2024 12:52 PM EST [facility] Chol/HDL Ratio 2.1 0.0 - 4.4 LAB CHEMISTRY METHOD 09/04/2024 12:52 PM [facility] Blood Venous blood specimen / Unknown Venipuncture / Unknown 09/04/2024 8:59 AM EST 09/04/2024 8:59 AM EST us Tere Tim MD LAB BLOOD ORDERABL ES Final Result [facility] [address] [place] [address], [place] [phone] * Comprehensive metabolic panel (09/04/2024 8:59 AM EST) Sodium 140 133 - 145 mmol/L LAB CHEMISTRY METHOD 09/04/2024 12:51 PM [facility] Potassium 3.9 3.5 - 5.5 mmol/L LAB CHEMISTRY METHOD 09/04/2024 12:51 PM [facility] Chloride 107 96 - 110 mmol/L LAB CHEMISTRY METHOD 09/04/2024 12:51 PM [facility] CO2 28 21 - 32 mmol/L LAB CHEMISTRY METHOD 09/04/2024 12:51 PM [facility] Anion Gap 5 3 - 11 LAB CHEMISTRY METHOD 09/04/2024 12:51 PM [facility] Glucose 95 70 - 100 mg/dL LAB CHEMISTRY METHOD 09/04/2024 12:51 PM [facility] BUN 14 5 - 25 mg/dL LAB CHEMISTRY METHOD 09/04/2024 12:51 PM [facility] Creatinine 0.67 0.50 - 1.10 mg/dL LAB CHEMISTRY METHOD 09/04/2024 12:51 PM [facility] eGFR 93 >=60 mL/min/1. 73m2 LAB CHEMISTRY METHOD 09/04/2024 12:51 PM [facility] Comment:Calculation based on the Chronic Kidney Disease Epidemiology Collaboration (CKD-EPI) equation refit without adjustment for race. BUN/Creatinine Ratio 20.9 LAB CHEMISTRY METHOD 09/04/2024 12:51 PM [facility] Calcium 9.9 8.5 - 10.5 mg/dL LAB CHEMISTRY METHOD 09/04/2024 12:51 PM [facility] AST (SGOT) 15 10 - 42 unit/L LAB CHEMISTRY METHOD 09/04/2024 12:51 PM [facility] ALT (SGPT) 35 10 - 60 unit/L LAB CHEMISTRY METHOD 09/04/2024 12:51 PM EST [facility] Alkaline Phosphatase 113 42 - 121 unit/L LAB CHEMISTRY METHOD 09/04/2024 12:51 PM [facility] Total Protein 7.1 6.0 - 8.0 g/dL LAB CHEMISTRY METHOD 09/04/2024 12:51 PM [facility] Albumin 4.2 3.2 - 5.0 g/dL LAB CHEMISTRY METHOD 09/04/2024 12:51 PM [facility] Total Bilirubin 0.7 0.0 - 1.4 mg/dL LAB CHEMISTRY METHOD 09/04/2024 12:51 PM [facility] Blood Venous blood specimen / Unknown Venipuncture / Unknown 09/04/2024 8:59 AM EST 09/04/2024 8:59 AM EST us Tere Tim MD LAB BLOOD ORDERABL ES Final Result [facility] [address] [place] [address], * DXA BONE DENSITY STUDY 1+ SITS AXIAL SKEL (10/18/2022 10:12 AM EDT) Anatomical Region Laterality Modality Bone Densitometr y 10/04/2022 9:31 AM EST Narrative 10/18/2022 1:06 PM EDT BONE DENSITY (DEXA) Lumbar Spine T-score is [...] to have osteoporosis by WHO criteria. The [facility] Department of Internal Medicine recommends [...] alternative screening schedule based on laurie Weems., [facility] August 19, 2011 for patients [...] to have osteoporosis by WHO criteria. The [facility] Department of Internal Medicine recommendsusing [...] screening schedule based on christopher Weems al., 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
== END 2025-02-27 11:48 | disposition home or self-care (01) ==
LOC: HO.HSM 11:26
PROVIDERS: PCP Internal Medicine; Referring Provider Internal Medicine; Visit Provider Registered Nurse
DX: G20.A1 Parkinson's disease without dyskinesia, without mention of fluctuations (principal); Z86.73 Personal history of transient ischemic attack (TIA), and cerebral infarction without residual deficits
CPT/HCPCS: 99213

== ENCOUNTER → 2025-02-27 11:25 | Outpatient (BNVA) | payer MEDICARE, SELFPAY | PROVIDERS: PCP Internal Medicine; Referring Provider Internal Medicine; Visit Provider Registered Nurse | DX: G20.A1 Parkinson's disease without dyskinesia, without mention of fluctuations (principal); Z86.73 Personal history of transient ischemic attack (TIA), and cerebral infarction without residual deficits | CPT/HCPCS: 99212 ==